=== PATIENT | male | born 1945 | race Caucasian/White ===

== ENCOUNTER → 2016-12-27 12:21 | Outpatient (CLI) | payer MEDICARE, OTHER ==
[2015-11-24 00:04] VITALS: BMI 27.1
[~2016-12-27 12:21] MED LIST: ALEVE220 MG PO; COMBIVENT RESPIM4 GM INH; CORDARONE200 MG PO; ELIQUIS5 MG PO; FLOMAX0.4 MG PO; HYDROCODONE-APA1 TAB PO; KLONOPIN1 MG PO; LEVAQUIN500 MG PO; LEVOTHYROXINE75 MCG PO; LOPRESSOR25 MG PO; NORCO 7.5-3251 EACH PO; SPIRIVA18 MCG INH; STERAPRED 5MG 65 M1 PO; XANAX1 MG PO
== END | disposition home or self-care (01) ==
LOC: D.CT 12:21 → D.RT 14:00
DX: J84.10 Pulmonary fibrosis, unspecified (principal)

== ENCOUNTER 2017-10-14 06:28 | Inpatient (IN) | payer MEDICARE, OTHER ==
[~2017-10-14] VITALS: Ht 180.3 cm; Wt 72.9 kg
--- NOTE | ~2017-10-14 | HEMODYNAMI ---
PATIENT:KYLE FERGUSON MEDICAL RECORD: [id number] : 43 LOCATION:[facility] D[id number] ADMISSION DATE: 10/14/17 Generatedon:10/15/201713:02 Patient name: KYLE FERGUSON Patient #: [id number] SSN: DO B: 1945 Date of study: 10/15/2017 Page: Of Hemodynamic Procedure Report Patient Data Patient Demographics Procedure consent was obtained First Name: KYLE Gender: Male Last Name: PHYLLIS : 1945 [facility] Initial: L Age: 72 year(s) Patient #: [id number] Race: Unknown Additional ID: [id number] Contact details [address]: [address] [place] [address] ROAD State: [place] City: [place] Zip code: [address] Past Medical History Allergies Allergen Reaction Date Comments Reported Other allergy 10/15/2017 SULFA, MORHPINE Admission Admission Data Admission Date: 10/14/2017 Admission Time: 8:41 Room #: D.2108 Lab Results Lab Result Date: 10/15/2017 Lab Result Time: 0:00 Biochemistry Name Units Result Min Max BUN mg/dl 46 --(----)-* 7 18 Creatinine mg/dl 2 --(----)-* 0.6 1.3 CBC Name Units Result Min Max Hemoglobin g/dl 13 -*(----)-- 13.5 17.5 Procedure Procedure Types Cath Procedure Diagnostic Procedure LHC LH w/Coronaries Sedation Charges Moderate Sedation up to 15 minutes PCI Procedure Coronary Stent Coronary Stent Initial Procedure Description Procedure Date Procedure Date: 10/15/2017 Procedure Start Time: 12:38 Procedure End Time: 13:00 Procedure Staff Name Function Clemente Castillo MD Performing Physician Christin Thurman RT Monitor Elijah Chong RT Scrub Jozef Amanda RN Nurse Procedure Data Cath Procedure Fluoroscopy Diagnostic fluoroscopy Total fluoroscopy Time: 4.2 time: 4.2 min min Diagnostic fluoroscopy Total fluoroscopy dose: 822 dose: 822 mGy mGy Contrast Material Contrast Material Type Amount (ml) Isovue 300 113 Entry Location Entry Primary Successful Side Size Upsize Upsize Entry Closure Succes sful Closure Location (Fr) 1 (Fr) 2 (Fr) Remarks Device Remarks Femoral Right 5 Fr 6 Fr Exoseal artery Short Estimated blood loss: 10 ml Diagnostic catheters Device Type Used For End Catheter Placement MULTIPACK JL 4.0 5Fr Procedure catheter DIAGNOSTIC JL 5 5Fr Procedure catheter ([id number]) MULTIPACK 3DRC 5Fr Procedure catheter MULTIPACK Pigtail 5 Fr Procedure catheter Procedure Complications No complications Procedure Medications Medication Administration Route Dosage 0.9% NaCl I.V. 100 ml/hr Oxygen etCO2 Nasal cannula 2 l/min Heparin Flush Bag added to field 2 bags (1000units/500ml NS) Lidocaine 2% added to field 20 Versed I.V. 1 mg Fentanyl I.V. 50 mcg Heparin Bolus I.V. 8100 units Plavix P.O. 600 mg Hemodynamics Rest HGB: 13 (g/dl) Heart Rate: 67 (bpm) Pressure Samples Time Site Value (mmHg) Purpose Heart Use Rate(bpm) 12:46 LV 113/-6,15 Snapshot 69 12:46 AO 111/58(80) Pullback 69 12:46 LV 108/2,13 Pullback 69 Gradients Valve Time Site 1 Site 2 Mean SEP/DFP Peak To Heart Use (mmHg) (sec/min) Peak Rate (mmHg) (bpm) Aortic 12:46 LV AO 0 9 0 69 108/2,13 111/58(80) Calculations Valve P-P Mean Valve Index Valve Source Name Gradient Area Flow (cm2) Aortic 0 0 0 0 Snapshots Pre Cath Intra NCS Post Cath Vital Signs Time Heart Resp SPO2 etCO2 NIBP (mmHg) Rhythm Pain Sedation Rate (ipm) (%) (mmHg) Status Level (bpm) 12:32:23 67 21 94 24 122/85(100) NSR 0 (11) 10(A) , No pain 12:36:59 68 16 92 27 120/76(101) NSR 0 (11) 10(A) , No pain 12:41:36 67 13 91 15 115/75(90) NSR 0 (11) 9(A) , No pain 12:46:59 68 15 92 27.7 108/70(91) NSR 0 (11) 9(A) , No pain 12:51:34 68 13 92 28.5 114/69(90) NSR 0 (11) 9(A) , No pain 12:56:10 67 14 93 29.2 108/68(88) NSR 0 (11) 9(A) , No pain 13:00:43 68 15 93 25.5 109/69(88) NSR 0 (11) 10(A) , No pain Medications Time Medication Route Dose Verified Delivered Reason Notes Effectiveness by by 12:32:17 0.9% NaCl I.V. 100 Jozef Jozef Per physician ml/hr Vasiliy Amanda RN RN 12:32:38 Oxygen etCO2 2 Jozef Jozef Per physician Nasal l/min Vasiliy Amanda cannula RN RN 12:32:52 Heparin Flush added 2 Jozef Jozef used for Bag to bags Vasiliy Amanda procedure (1000units/500ml RN RN NS) 12:33:07 Lidocaine 2% added 20ml Jozef Jozef for local to vial Vasiliy Amanda anesthetic [facility] RN RN 12:33:27 Versed I.V. 1 mg Jozef Jozef for sedation Vasiliy Amanda RN RN 12:33:37 Fentanyl I.V. 50 Jozef Ojzef for sedation mcg Vasiliy Amanda RN RN 12:51:55 Heparin Bolus I.V. 8,100 Jozef Jozef for units Vasiliy Amanda anticoagulation RN RN 13:00:37 Plavix P.O. 600 Jozef Jozef for mg Vasiliy Amanda antiplatelet RN RN therapy Procedure Log Time Note 12:08:27 Signed procedure consent form obtained from patient. 12:08:30 Time tracking: Regular hours (M-F 7:00 - 5:00) 12:08:34 Plan of Care:Hemodynamics will remain stable., Cardiac rhythm will remain stable., Comfort level will be maintained., Respiratory function will remain adequate., Patient/ family verbilizes understanding of procedure., Procedure tolerated without complication., Recovers from procedure without complications.. 12:08:43 H&P Date Dictated: 10/14/2017 Within 30 days and on chart., H&P Addendum completed by physician on day of procedure. (MUST COMPLETE FOR ALL OUTPATIENTS). 12:09:10 Lab Result : BUN 46 mg/dl 12:09:10 Lab Result : Hemoglobin 13 g/dl 12:09:10 Lab Result : Creatinine 2 mg/dl 12:10:20 Jozef Amanda RN sent for patient. Start room use. 12::42 Patient received from Med II to CCL 1 Alert and oriented. Tansferred to table in Supine position. 12::44 Warm blankets applied, and debbie hugger turned on for patient comfort. 12::44 Correct patient and procedure confirmed by team. 12::45 ECG and BP/O2 sat monitors applied to patient. 12:: Baseline sample Acquired. 12:: Vital chart was started 12::37 Rhythm: sinus rhythm 12::38 Full Disclosure recording started 12::39 Pre-procedure instructions explained to patient. 12::39 Pre-op teaching completed and patient verbalized understanding. 12::41 Family unavailable. 12::42 Patient NPO since Midnight. 12:31:55 Patient allergic to Other allergySULFA, MORHPINE 12:31:57 Is the patient allergic to Iodine/contrast media? No. 12:31:58 Is patient on blood thinner?No 12:32:00 Patient diabetic? No. 12:32:03 Previous problem with sedation/anesthesia? No ? 12:32:04 Snore? Yes 12:32:05 Sleep apnea? No 12:32:06 Deviated septum? No 12:32:06 Opens mouth fully? Yes 12:32:07 Sticks out tongue? Yes 12:32:10 Airway obstruction? Yes COPD 12:32:13 Dentures? No ? 12:32:17 0.9% NaCl 100 ml/hr I.V. was administered by Jozef Amanda RN; Per physician; 12:32:17 Pre procedure: right dorsailis pedis pulse 2+ Normal; easily identifiable; not easily obliterated 12:32:19 Patient pain scale 0/10 ?. 12:32:23 IV patent on arrival in right antecubital with 0.9% NaCl at [facility]. 12:32:26 Lab results completed and on chart. 12:32:29 Right groin area was prepped with chlora-prep and draped in sterile fashion 12:32:30 Alarms reviewed by R. N. 12:32:30 Sharps counted by scrub and verified by R.N. 12:32:32 --------ALL STOP TIME OUT------ 12:32:32 Final Timeout: patient, procedure, and site verified with staff and physician. All members of the team are in agreement. 12:32:33 Right groin site verified by team. 12:32:36 Physical assessment completed. ASA score P 2 - A patient with mild systemic disease as per Clemente Castillo MD. 12:32:38 Oxygen 2 l/min etCO2 Nasal cannula was administered by Jozef Amanda RN; Per physician; 12:32:39 Sedation plan: IV Moderate Sedation Medication:Versed, Fentanyl 12:32:42 Use device set Femoral Dx 12:32:43 ACIST Syringe (73556) opened to sterile field. 12:32:44 Bag Decanter (2002S) opened to sterile field. 12:32:45 ACIST Hand Control (44733) opened to sterile field. 12:32:45 ACIST Manifold (95999) opened to sterile field. 12:32:46 Tegaderm 4 x 4 (1626W) opened to sterile field. 12:32:47 Medline Cath Pack ([id number]) opened to sterile field. 12:32:48 DIAGNOSTIC WIRE .035 260cm J wire (608149) opened to sterile field. 12:32:49 DIAGNOSTIC Multipack 5Fr catheter set ([id number]) opened to sterile field. 12:32:52 Heparin Flush Bag (1000units/500ml NS) 2 bags added to field was administered by Jozef Amanda RN; used for procedure; 12:33:07 Lidocaine 2% 20ml vial added to field was administered by Jozef Amanda RN; for local anesthetic; 12:33:27 Versed 1 mg I.V. was administered by Jozef Amanda RN; for sedation; 12:33:37 Fentanyl 50 mcg I.V. was administered by Jozef Amanda RN; for sedation; 12:38:42 Zero performed for pressure channel P1 12:38:47 Procedure started. 12:38:51 Local anesthetic to right femoral artery with Lidocaine 2% by Clemente Castillo MD.INITIAL ACCESS ONLY 12:39:00 A 5 Fr sheath was inserted into the Right Femoral artery 12:39:33 SHEATH Prelude 5Fr 0.035 (OVO-7U-53-035) opened to sterile field. 12:39:48 A MULTIPACK JL 4.0 5Fr catheter was advanced over the wire and used for Procedure. 12:40:45 UNABLE TO ENGAGE LEFT CORONARY 12:40:47 Catheter removed. 12:41:22 A DIAGNOSTIC JL 5 5Fr catheter ([id number]) was advanced over the wire and used for Procedure. 12:42:21 LCA angiography performed. 12:42:57 Catheter exchanged over wire. 12:44:00 A MULTIPACK 3DRC 5Fr catheter was advanced over the wire and used for Procedure. 12:44:38 RCA angiography performed. 12:44:53 Catheter exchanged over wire. 12:45:34 A MULTIPACK Pigtail 5 Fr catheter was advanced over the wire and used for Procedure. 12:46:00 Injector settings: Ml/sec: 10, Volume: 20, 12:46:04 LV gram done using ODONNELL 12:46:07 LV hemodynamics recorded. 12:46:54 EF : 20 % 12:47:01 Catheter exchanged over wire. 12:47:13 TUBING High Pressure Extension Tubing (Castillo) ([id number]) opened to sterile field. 12:47:19 BMW 300cm [place] 2 J wire ([id number]) opened to sterile field. 12:47:24 GUIDE 6FR XBLAD 4.0 catheter ([id number]) opened to sterile field. 12:47:36 SHEATH 6FR [place] (NSG143) opened to sterile field. 12:47:43 INFLATOR Merit BasixCompak (DJ5682) opened to sterile field. 12:48:12 Sheath upsized to a 6 Fr Short. 12:49:30 6 Fr XBLAD 4 guide catheter was inserted over the wire 12:51:55 Heparin Bolus 8,100 units I.V. was administered by Jozef Amanda RN; for anticoagulation; 12:52:01 BMW 300 wire advanced. 12:53:13 Wire advanced across lesion. 12:56:16 Place stent Inflation Number: 1 A INTEGRITY OTW 3.0 X 12 stent ([id number]) was prepped and advanced across the Prox LAD. The stent was deployed at 14 ADRIANE for 0:10 (min:sec). 12:56:47 EXOSEAL 6Fr (EX600) opened to sterile field. 12:56:53 Stent catheter was removed intact over wire. 12:56:56 Wire removed. 12:57:00 Guide catheter removed. 12:57:55 Sheath removed intact; hemostasis achieved with Exoseal to the Right Femoral artery. 12:58:19 Procedure ended.(Physican Out) 12:59:21 Fluoroscopy time 04.20 minutes. 12:59:25 Fluoroscopy dose: 822 mGy 12:59:25 Flurop Dose total: 822 12:59:29 Contrast amount:Isovue 300 113ml. 12:59:31 Sharps counted by scrub and verified by R.N. 12:59:35 Post-op/insertion site Right Femoral artery dressed using a 4 x 4 and Tegaderm. 12:59:38 Post right femoral artery:stable, soft, clean and dry 12:59:43 Post-procedure physical assessment completed. ASA score P 2 - A patient with mild systemic disease as per Clemente Castillo MD. 12:59:47 Post procedure rhythm: unchanged. 12:59:49 Estimated blood loss: 10 ml 12:59:51 Post procedure instruction explained to patient.Patient verbalizes understanding. 12:59:51 Patient needs reinforcement of post procedure teaching. 13:00:04 Procedure type changed to Cath procedure, Diagnostic procedure, LHC, LHC w/Coronaries, Sedation Charges, Moderate Sedation up to 15 minutes, PCI procedure, Coronary Stent, Coronary Stent Initial 13:00:37 Plavix 600 mg P.O. was administered by Jozef Amanda RN; for antiplatelet therapy; 13:00:44 Procedure and supply charges have been captured, reviewed, submitted and are correct. 13:00:46 Procedure Complication : No complications 13:00:48 Vital chart was stopped 13:00:49 See physician's report for complete and final results. 13:00:52 Report given to PCU. 13:00:56 Patient transfered to PCU with Bed. 13:00:58 Procedure ended. 13:00:58 Full Disclosure recording stopped 13:01:01 End room use (Document Last) Intervention Summary Intervention Notes Time ActionType Lesion and Equipment Action# Pressure Duration Attributes Used 12:56:16 Place stent Prox LAD INTEGRITY 1 14 00:10 OTW 3.0 X 12 stent ([id number]) Device Usage Item Name Manufacture Quantity Catalog Number Hospital Part Current M inimal Lot# / Charge Number Stock Stock Serial# Code ACIST Syringe Acist 1 17281 029596 315416 426142 2 0 (02950) [employer] Bag Decanter Microtek 1 2001S 221367 14699 045773 5 (2001S) Medical Inc. ACIST Hand Acist 1 16497 643680 506641 309931 5 Control (00983) [employer] Inc ACIST Manifold Acist 1 59270 682325 062726 544773 5 (29544) Medical Systems Inc Tegaderm 4 x 4 3M 1 1626W 805915 127109 725010 5 (1626W) Medline Cath Cardinal 1 [id number] 426883 77017 795017 5 Pack Health ([id number]) DIAGNOSTIC WIRE St Dash 1 024370 098679 836419 715400 3 0 .035 260cm J wire (200413) DIAGNOSTIC Cardinal 1 FO6001 549332 96740 223769 3 0 Multipack 5Fr Health catheter set (DD2609) SHEATH Prelude Merit 1 TIJ-8A-79-035 171336 218267 143727 5 5Fr 0.035 Medical (JPA-2I-22-035) MULTIPACK JL Cardinal 1 526986 5 4.0 5Fr Health catheter DIAGNOSTIC JL 5 Cardinal 1 [id number] 138232 492991 974227 5 5Fr catheter Health (470161D) MULTIPACK 3DRC Cardinal 1 174733 5 5Fr catheter Health MULTIPACK Cardinal 1 520580 5 Pigtail 5 Fr Health catheter TUBING High Merit 1 [id number] 200854 34066 746801 1 0 Pressure Medical Extension Tubing (Castillo) (VD2550Y) BMW 300cm [place] 1 [id number] 954129 468632 137867 5 [place] 2 J Vascular wire (4541549C) GUIDE 6FR XBLAD Cardinal 1 [id number] 539544 635701 051798 3 4.0 catheter Health ([id number]) SHEATH 6FR Terumo 1 ITV079 867074 944011 902570 4 0 [place] (OZE446) INFLATOR Merit Merit 1 KC0984 015106 490261 264682 1 5 Causes (PU0196) INTEGRITY OTW Medtronic 1 [id number] 739170 132353 9 [id number] 3.0 X 12 stent ([id number]) EXOSEAL 6Fr Cardinal 1 EX600 274555 722221 774205 1 0 (EX600) Health Signature Audit [place] Stage Time Signature Unsigned Intra-Procedure 10/15/2017 Christin Thurman 1:02:16 PM RT(R) Signatures Monitor : Christin Thurman Signature : RT Date : Time : [address] [address]
[2017-10-14 06:44] LABS: BASOPHILS 0.6 % (0-2); EOSINOPHILS 8.1 % (0-7); HEMATOCRIT 39.1 % (42.0-54.0); HEMOGLOBIN 12.8 g/dL (13.5-17.5); IMMATURE GRANULOCYTES 0.3 % (0-5); LYMPHOCYTES 24.1 % (15-50); MCH 31.6 pg (26.0-34.0); MCHC 32.7 g/dL (31.0-37.0); MCV 96.5 fL (80.0-100.0); MEAN PLATELET VOLUME 9.8 fL (7.4-10.4); MONOCYTES 13.7 % (2-11); NEUTROPHILS 53.2 % (40-80); PLATELET COUNT 285 10x3/uL (130-400); RBC 4.05 10x6/uL (4.20-6.10); RDW 15.4 % (11.5-14.5); WBC 10.4 10x3/uL (4.8-10.8)
[2017-10-14 07:10] LABS: ALBUMIN 3.5 g/dL (3.4-5.0); ANION GAP 17.3 mmol/L (8-16); BILIRUBIN - TOTAL 0.74 mg/dL (0.2-1.3); CARBON DIOXIDE 20.7 mmol/L (21.0-32.0)
[2017-10-14 07:20] LABS: TROPONIN-I 0.038 ng/mL (0.000-0.060)
[2017-10-14] MEDS ORDERED: FLOMAX0.4 MG PO (14:25)
[2017-10-14] MEDS ORDERED: VALIUM5 MG PO (14:26)
[2017-10-14 14:42] VITALS: BP 125/92; BMI 24.1
[2017-10-14 20:11] VITALS: BP 83/58
[2017-10-15] VITALS: BP 121/84
[2017-10-15 05:32] VITALS: BP 97/59
[2017-10-15 05:45] LABS: BASOPHILS 0.6 % (0-2); EOSINOPHILS 6.4 % (0-7); HEMATOCRIT 39.6 % (42.0-54.0); IMMATURE GRANULOCYTES 0.2 % (0-5); LYMPHOCYTES 17.3 % (15-50); MCH 31.4 pg (26.0-34.0); MCHC 32.8 g/dL (31.0-37.0); MCV 95.7 fL (80.0-100.0); MEAN PLATELET VOLUME 9.7 fL (7.4-10.4); MONOCYTES 13.7 % (2-11); NEUTROPHILS 61.8 % (40-80); PLATELET COUNT 297 10x3/uL (130-400); RBC 4.14 10x6/uL (4.20-6.10); RDW 15.3 % (11.5-14.5); WBC 10.2 10x3/uL (4.8-10.8)
[2017-10-15 05:55] LABS: ANION GAP 14.2 mmol/L (8-16); CALCIUM 8.5 mg/dL (8.5-10.1); CARBON DIOXIDE 25.7 mmol/L (21.0-32.0)
[2017-10-15 06:00] LABS: POTASSIUM - SERUM 3.9 mmol/L (3.5-5.1)
[2017-10-15 09:13] VITALS: BP 105/72
[2017-10-15 10:47] VITALS: Ht 180.3 cm; Wt 72.9 kg
[2017-10-15 11:58] VITALS: BP 112/68
[2017-10-15 16:47] VITALS: BP 119/68
[2017-10-15 20:38] VITALS: BP 103/63
[2017-10-16 00:28] VITALS: BP 103/60
[2017-10-16 05:41] VITALS: BP 102/61
[2017-10-16 05:47] LABS: BASOPHILS 0.4 % (0-2); HEMATOCRIT 37.7 % (42.0-54.0); HEMOGLOBIN 12.1 g/dL (13.5-17.5); IMMATURE GRANULOCYTES 0.2 % (0-5); LYMPHOCYTES 16.5 % (15-50); MCH 30.7 pg (26.0-34.0); MCHC 32.1 g/dL (31.0-37.0); MCV 95.7 fL (80.0-100.0); MEAN PLATELET VOLUME 9.6 fL (7.4-10.4); MONOCYTES 16.7 % (2-11); NEUTROPHILS 56.2 % (40-80); PLATELET COUNT 270 10x3/uL (130-400); RBC 3.94 10x6/uL (4.20-6.10); RDW 15.4 % (11.5-14.5); WBC 10.3 10x3/uL (4.8-10.8)
[2017-10-16 06:14] LABS: ANION GAP 12.4 mmol/L (8-16); CARBON DIOXIDE 24.4 mmol/L (21.0-32.0); CREATININE - SERUM 1.7 mg/dL (0.6-1.3); POTASSIUM - SERUM 3.8 mmol/L (3.5-5.1)
[2017-10-16 09:16] VITALS: BP 106/72
[2017-10-16 12:54] VITALS: BP 113/67
[2017-10-16 17:05] VITALS: BP 105/69
[2017-10-16 21:25] VITALS: BP 116/75
[2017-10-17 00:50] VITALS: BP 103/60
[2017-10-17 04:50] VITALS: BP 101/54
[2017-10-17 05:54] LABS: BASOPHILS 0.5 % (0-2); EOSINOPHILS 11.9 % (0-7); HEMATOCRIT 42.8 % (42.0-54.0); HEMOGLOBIN 13.9 g/dL (13.5-17.5); IMMATURE GRANULOCYTES 0.3 % (0-5); LYMPHOCYTES 20.6 % (15-50); MCH 31.3 pg (26.0-34.0); MCHC 32.5 g/dL (31.0-37.0); MCV 96.4 fL (80.0-100.0); MEAN PLATELET VOLUME 9.5 fL (7.4-10.4); MONOCYTES 14.3 % (2-11); NEUTROPHILS 52.4 % (40-80); PLATELET COUNT 297 10x3/uL (130-400); RBC 4.44 10x6/uL (4.20-6.10); RDW 15.4 % (11.5-14.5); WBC 9.8 10x3/uL (4.8-10.8)
[2017-10-17 06:12] LABS: ANION GAP 13.3 mmol/L (8-16); CALCIUM 8.5 mg/dL (8.5-10.1); CREATININE - SERUM 1.8 mg/dL (0.6-1.3); POTASSIUM - SERUM 3.3 mmol/L (3.5-5.1)
[2017-10-17 08:08] VITALS: BP 119/74
[2017-10-17] MEDS ORDERED: NICODERM C1 PATCH .1 TRANSDERM (09:48)
[2017-10-17] MEDS ORDERED: PROTONIX40 MG PO (09:49)
[2017-10-17] MEDS ORDERED: BUMEX 1 MG TAB1 MG PO (09:49)
[2017-10-17] MEDS ORDERED: KLOR-CON 1010 MEQ PO (09:50)
[2017-10-17] MEDS ORDERED: PLAVIX75 MG PO (09:58)
[2017-10-17 11:06] VITALS: BP 126/83
== END 2017-10-17 14:50 | disposition home or self-care (01) | DRG 248 ==
LOC: D.ER 06:28 → D.M2 08:41 → D.EDHOLD 08:41 → D.M2 14:00
PROVIDERS: Emergency Medicine; Internal Medicine Cardiovascular Disease; Internal Medicine Nephrology
PROC: B2111ZZ Fluoroscopy of Multiple Coronary Arteries using Low Osmolar Contrast (ICD-10-PCS; 2017-10-15)
PROC: B2151ZZ Fluoroscopy of Left Heart using Low Osmolar Contrast (ICD-10-PCS; 2017-10-15)
PROC: 02703DZ Dilation of Coronary Artery, One Artery with Intraluminal Device, Percutaneous Approach (ICD-10-PCS; principal; 2017-10-15 15:00)
PROC: 4A023N7 Measurement of Cardiac Sampling and Pressure, Left Heart, Percutaneous Approach (ICD-10-PCS; 2017-10-15 15:00)
DX: I11.0 Hypertensive heart disease with heart failure (principal); J96.21 Acute and chronic respiratory failure with hypoxia; N17.9 Acute kidney failure, unspecified; J44.0 Chronic obstructive pulmonary disease with (acute) lower respiratory infection; F17.203 Nicotine dependence unspecified, with withdrawal; I48.92 Unspecified atrial flutter; I50.23 Acute on chronic systolic (congestive) heart failure; J20.9 Acute bronchitis, unspecified; J84.10 Pulmonary fibrosis, unspecified; K76.1 Chronic passive congestion of liver; I08.1 Rheumatic disorders of both mitral and tricuspid valves; I27.20 Pulmonary hypertension, unspecified; G47.00 Insomnia, unspecified; J98.09 Other diseases of bronchus, not elsewhere classified

== ENCOUNTER 2018-06-09 11:00 | Outpatient (CLI) | payer MEDICARE, OTHER ==
[2017-10-15 10:47] VITALS: BMI 23.3
[~2018-06-09 11:00] MED LIST changes: +BUMEX 1 MG TAB1 MG PO; +KLOR-CON 1010 MEQ PO; +NICODERM C1 PATCH .1 TRANSDERM; +PLAVIX75 MG PO; +PROTONIX40 MG PO; +VALIUM5 MG PO
[2018-06-09 12:40] LABS: HEMATOCRIT 38.7 % (42.0-54.0); HEMOGLOBIN 12.5 g/dL (13.5-17.5); MCH 30.1 pg (26.0-34.0); MCHC 32.3 g/dL (31.0-37.0); MCV 93.3 fL (80.0-100.0); MEAN PLATELET VOLUME 9.3 fL (7.4-10.4); RBC 4.15 10x6/uL (4.20-6.10); RDW 15.6 % (11.5-14.5); WBC 9.4 10x3/uL (4.8-10.8)
[2018-06-09 12:58] LABS: ANION GAP 13.9 mmol/L (8-16); CALCIUM 9.3 mg/dL (8.5-10.1); CREATININE - SERUM 1.7 mg/dL (0.6-1.3); POTASSIUM - SERUM 4.9 mmol/L (3.5-5.1)
== END 2018-06-09 12:00 | disposition home or self-care (01) ==
LOC: D.OPS 11:00 → D.PAN 06-10 10:30 → D.OPS 06-10 12:20 → EDSTATUS 06-10 12:20 → D.PAN 06-10 12:20 → D.OPS 06-10 13:15
PROVIDERS: Anesthesiology
DX: N40.0 Benign prostatic hyperplasia without lower urinary tract symptoms (principal); Z01.810 Encounter for preprocedural cardiovascular examination; Z01.811 Encounter for preprocedural respiratory examination; Z01.812 Encounter for preprocedural laboratory examination; Z53.9 Procedure and treatment not carried out, unspecified reason

== ENCOUNTER 2019-01-29 09:10 | Day surgery (SDC) | payer MEDICARE, OTHER ==
[2019-01-27 16:02] LABS: HEMATOCRIT 40.1 % (42.0-54.0); HEMOGLOBIN 13.3 g/dL (13.5-17.5); MCH 31.3 pg (26.0-34.0); MCHC 33.2 g/dL (31.0-37.0); MCV 94.4 fL (80.0-100.0); MEAN PLATELET VOLUME 9.2 fL (7.4-10.4); RBC 4.25 10x6/uL (4.20-6.10); RDW 13.9 % (11.5-14.5); WBC 11.7 10x3/uL (4.8-10.8)
[2019-01-27 16:19] LABS: ANION GAP 10.5 mmol/L (8-16); CALCIUM 8.5 mg/dL (8.5-10.1); CARBON DIOXIDE 31.3 mmol/L (21.0-32.0); CREATININE - SERUM 1.6 mg/dL (0.6-1.3); POTASSIUM - SERUM 4.8 mmol/L (3.5-5.1)
[~2019-01-29] VITALS: Ht 180.3 cm; Wt 90.7 kg
[~2019-01-29 09:10] MED LIST changes: +ALBUTEROL SULF8.5 GM INH; +ASPIRIN EC81 M1 PO; +COREG 3.1253.125 MG PO; +DONEPEZIL HCL10 MG PO; +LISINOPRIL2.5 MG PO; +PRESERVISION PO; +VALIUM10 MG PO; -VALIUM5 MG PO; +XALATAN 0.0052.5 ML EACH EYE
[2019-01-29 11:19] VITALS: BP 148/64; Ht 180.3 cm; Wt 90.7 kg
--- NOTE | 2019-01-29 15:27 | NUR ---
1517 ALL DC CRITERIA MET. TAKEN OUT VIA W/C TO TRUCK WITH . ADVISED TO CALL OR COME BACK IF ANY PROBLEMS.
== END 2019-01-29 15:17 | disposition home or self-care (01) ==
LOC: D.OPS 09:10 → D.PAN 12:00 → D.OPS 12:00
PROVIDERS: Anesthesiology; ATTEND Urology
DX: N40.1 Benign prostatic hyperplasia with lower urinary tract symptoms (principal); N13.8 Other obstructive and reflux uropathy

== ENCOUNTER → 2019-06-25 12:48 | Outpatient (CLI) | payer MEDICARE, BC ==
[2019-01-29 11:19] VITALS: BMI 27.9
== END | disposition home or self-care (01) ==
LOC: D.RT 04-07 10:30 → D.CT 04-07 11:00 → D.RT 05-05 09:00 → D.CT 12:48 → D.RT 13:00
PROVIDERS: ATTEND Internal Medicine Pulmonary Disease
DX: J44.9 Chronic obstructive pulmonary disease, unspecified (principal); J84.10 Pulmonary fibrosis, unspecified

== ENCOUNTER → 2019-11-23 12:18 | Outpatient (CLI) | payer MEDICARE, BC ==
[2019-01-29 11:19] VITALS: BMI 27.9
== END | disposition home or self-care (01) ==
LOC: D.LABREF 12:18
PROVIDERS: ATTEND Internal Medicine Pulmonary Disease
DX: Z11.59 Encounter for screening for other viral diseases (principal)

== ENCOUNTER → 2019-11-24 12:02 | Outpatient (CLI) | payer MEDICARE, BC ==
[2019-01-29 11:19] VITALS: BMI 27.9
== END | disposition home or self-care (01) ==
LOC: D.RT 09-23 08:30
PROVIDERS: ATTEND Internal Medicine Pulmonary Disease
DX: J44.9 Chronic obstructive pulmonary disease, unspecified (principal)

== ENCOUNTER 2020-02-17 17:31 | Observation (INO) | payer MEDICARE, BC ==
[~2020-02-17] VITALS: Ht 180.3 cm; Wt 90.9 kg
--- NOTE | ~2020-02-17 | HEMODYNAMI ---
PATIENT:KYLE FERGUSON MEDICAL RECORD: [id number] : 43 LOCATION:[facility] D.2117 [facility]# [id number] ADMISSION DATE: 02/17/20 Generatedon:02/18/202014:31 Patient name: KYLE FERGUSON Patient #: [id number] SSN: [id number] : 1945 Date of study: 02/18/2020 Page: Of Hemodynamic Procedure Report Patient Data Patient Demographics First Name: KYLE Gender: Male Last Name: PHYLLIS : 1945 Middle Initial: L Age: 75 year(s) Patient #: [id number] Race: Unknown SSN: [id number] Additional ID: [id number] Contact details [address]: [address] [place] [address] ROAD State: [place] City: [place] Zip code: [address] Past Medical History Allergies Allergen Reaction Date Comments Reported Other allergy 10/15/2017 SULFA, MORHPINE Other allergy 02/18/2020 Admission Admission Data Admission Date: 02/17/2020 Admission Time: 19:07 Arrival Date: 02/18/2020 Arrival Time: 0:00 Admit Source: Other [facility] #: [id number] Height (in.): 70.87 BSA: 2.1 (m2) Height (cm.): 180 BMI: 27.78 (kg/m2) Weight (lbs.): 198.42 Weight (kg.): 90 Lab Results Lab Result Date: 02/18/2020 Lab Result Time: 0:00 Biochemistry Name Units Result Min Max BUN mg/dl 30 --(----)-* 7 18 Creatinine mg/dl 1.5 --(----)-* 0.6 1.3 eGFR ml/min 48 *-(----)-- 90 120 NONAFRICAN CBC Name Units Result Min Max Hemoglobin g/dl 11.8 *-(----)-- 13.5 17.5 Procedure Procedure Types Cath Procedure Diagnostic Procedure [facility] w/Coron[facility] Procedure Description Procedure Date Procedure Date: 02/18/2020 Procedure Start Time: 14:19 Procedure End Time: 14:27 Procedure Staff Name Function Luis Mayorga MD Performing Physician Melodie Sanders RT Monitor Suni Kim RN Nurse Rhea Stein RT Monitor Procedure Data Cath Procedure Fluoroscopy Diagnostic fluoroscopy Total fluoroscopy Time: 1 time: 1 min min Diagnostic fluoroscopy Total fluoroscopy dose: 875 dose: 875 mGy mGy Contrast Material Contrast Material Type Amount (ml) Isovue 300 44 Entry Location Entry Primary Successful Side Size Upsize Upsize Entry Closure Succes sful Closure Location (Fr) 1 (Fr) 2 (Fr) Remarks Device Remarks Femoral Right 5 Fr Exoseal artery Estimated blood loss: 5 ml Diagnostic catheters Device Type Used For End Catheter Placement MULTIPACK JL 4.0 5Fr Left Coronary catheter Angiography MULTIPACK 3DRC 5Fr Right Coronary catheter Angiography MULTIPACK Pigtail 5 Fr LV Angiography catheter Procedure Complications No complications Procedure Medications Medication Administration Route Dosage 0.9% NaCl I.V. 100 ml/hr Lidocaine 2% added to field 20 Heparin Flush Bag added to field 2 bags (1000units/500ml NS) Oxygen NC 2 l/min Versed I.V. 1 mg Fentanyl I.V. 50 mcg Versed I.V. 1 mg Fentanyl I.V. 50 mcg Versed I.V. 0.5 mg Hemodynamics Rest BSA: 2.1 (m2) HGB: 11.8 (g/dl) O2 Consumption: Estimated: 229.84 (ml/min) O2 Con sumption indexed: Estimated:109.45 (ml/min/m) Heart Rate: 56 (bpm) Pressure Samples Time Site Value (mmHg) Purpose Heart Use Rate(bpm) 14:25 LV 136/8,15 Snapshot 56 14:25 AO 127/68(92) Pullback 57 14:25 LV 124/16,21 Pullback 57 Gradients Valve Time Site 1 Site 2 Mean SEP/DFP Peak To Heart Use (mmHg) (sec/min) Peak Rate (mmHg) (bpm) Aortic 14:25 LV AO 0 9 0 57 124/16,21 127/68(92) Calculations Valve P-P Mean Valve Index Valve Source Name Gradient Area Flow (cm2) Aortic 0 0 0 0 Snapshots Pre Cath Intra NCS Post Cath Vital Signs Time Heart Resp SPO2 etCO2 NIBP (mmHg) Rhythm Pain Sedation Rate (ipm) (%) (mmHg) Status Level (bpm) 14:08:23 52 25 95 27.3 145/73(120) NSR 0 (11) 10(A) , No pain 14:12:47 52 24 96 27.3 147/73(124) NSR 0 (11) 10(A) , No pain 14:17:12 52 22 96 31 149/78(125) NSR 0 (11) 9(A) , No pain 14:22:11 54 21 96 24.3 Measuring NSR 0 (11) 9(A) , No pain 14:22:27 53 20 94 35.4 130/66(106) NSR 0 (11) 9(A) , No pain 14:27:26 55 15 95 38.4 Measuring NSR 0 (11) 9(A) , No pain 14:27:32 55 16 95 34.7 129/71(112) NSR 0 (11) 10(A) , No pain Medications Time Medication Route Dose Verified Delivered Reason Notes Effe ctiveness by by 14:11:46 0.9% NaCl I.V. 100 Luis Suni used for ml/hr Tierra Julio procedure MD FRAZIER 14:11:55 Lidocaine 2% added 20ml Luis Suni for local to vial Tierra Julio anesthetic field MD FRAZIER 14:12:07 Heparin Flush added 2 Luis Suni used for Bag to bags Tierra Julio procedure (1000units/500ml field AVELAR RN NS) 14:12:16 Oxygen NC 2 Ulis Suni for low 02 l/min Tierra Julio sats MD FRAZIER 14:19:27 Versed I.V. 1 mg Luis Suni for Tierra Julio sedation MD FRAZIER 14:19:35 Fentanyl I.V. 50 Luis Suni for mcg Tierra Julio sedation MD FRAZIER 14:22:01 Versed I.V. 1 mg Luis Suni for Tierra Julio sedation MD FRAZIER 14:22:12 Fentanyl I.V. 50 Luis Suni for mcg Tierra Julio sedation MD FRAZIER 14:25:21 Versed I.V. 0.5 Luis Suni for mg Tierra Julio sedation MD installer interior assemblies Log Time Note 13:41:49 Arrival Date: 02/18/2020 12:00:00 AM 13:42:12 Admit Source: Other 13:42:15 Insurance Payor : Private health insurance, Medicare 13:43:11 Patient Height : 70.87 inches 13:43:15 Patient Weight : 198.42 lbs 13:46:52 Lab Result : BUN 30 mg/dl 13:46:52 Lab Result : Hemoglobin 11.8 g/dl 13:46:52 Lab Result : eGFR NONAFRICAN 48 ml/min 13:46:52 Lab Result : Creatinine 1.5 mg/dl 13:47:03 Diagnostic Cath Status : Urgent 13:48:31 Procedure Status Urgent Heart Cath (IP). 13:48:34 Melodie Sanders RT(R) sent for patient. Start room use. 13:48:35 Time tracking: Regular hours (M-F 7:00 - 5:00) 13:48:40 Plan of Care:Hemodynamics will remain stable., Cardiac rhythm will remain stable., Comfort level will be maintained., Respiratory function will remain adequate., Patient/ family verbilizes understanding of procedure., Procedure tolerated without complication., Recovers from procedure without complications.. 14:04:32 Patient received from Med II to CCL 1 Alert and oriented. Tansferred to table in Supine position. 14:04:33 Warm blankets applied, and debbie hugger turned on for patient comfort. 14:04:36 Correct patient and procedure confirmed by team. 14:04:40 ECG and BP/O2 sat monitors applied to patient. 14:04:44 Pre-procedure instructions explained to patient. 14:04:47 Family unavailable. 14:04:49 Patient NPO since Midnight. 14:05:45 Patient allergic to Other allergy 14:05:52 Is the patient allergic to Iodine/contrast media? No. 14:05:54 Was the patient premedicated? Yes 14:05:57 Is patient on blood thinner?No 14:05:59 Patient diabetic? No. 14:06:10 Snore? Yes 14:06:12 Sleep apnea? Yes 14:06:33 Airway obstruction? Yes COPD,asthma,emphazema 14:06:39 Patient pain scale 0/10 ?. 14:06:44 Lab results completed and on chart. 14:06:50 Right groin area was prepped with chlora-prep and draped in sterile fashion 14:06:55 Sharps counted by scrub and verified by Patrick 14:06:57 Physician paged 14:06:58 Physician arrived 14:07:03 --------ALL STOP TIME OUT------ 14:07:04 Final Timeout: patient, procedure, and site verified with staff and physician. All members of the team are in agreement. 14:07:07 Right groin site verified by team. 14:07:11 Fire Safety Assessment: A--An alcohol-based skin anteseptic being used preoperatively., C--Open oxygen or nitrous oxide is being used., D--An ESU, laser, or fiber-optic light is being used. 14:07:14 Vital chart was started 14:07:16 Physical assessment completed. ASA score P 2 - A patient with mild systemic disease as per Luis Mayorga MD. 14:07:21 3a) 45-59 Moderately reduced kidney function. 14:07:57 Maximum allowable contrast dose (3.7 X eGFR X 0.75)133 ml. 14:08:03 Sedation plan: IV Moderate Sedation Medication:Versed, Fentanyl 14:08:08 Use device set Femoral Dx 14:08:13 ACIST Syringe (20766) opened to sterile field. 14:08:13 Bag Decanter (2002S) opened to sterile field. 14:08:14 Medline Cath Pack ([id number]) opened to sterile field. 14:08:15 ACIST Hand Control (28944) opened to sterile field. 14:08:16 ACIST Manifold (19170) opened to sterile field. 14:08:16 DIAGNOSTIC Multipack 5Fr catheter set (LS0273) opened to sterile field. 14:08:18 Tegaderm 4 x 4 (1626W) opened to sterile field. 14:08:19 SHEATH 5FR Hemet (UTY235) opened to sterile field. 14:08:20 EMERALD Guide Wire (456-287) opened to sterile field. 14:11:46 0.9% NaCl 100 ml/hr I.V. was administered by Suni Kim RN; used for procedure; Verbal order read back and verified. 14:11:55 Lidocaine 2% 20ml vial added to field was administered by Suni Kim RN; for local anesthetic; Verbal order read back and verified. 14:12:07 Heparin Flush Bag (1000units/500ml NS) 2 bags added to field was administered by Suni Kim RN; used for procedure; Verbal order read back and verified. 14:12:16 Oxygen 2 l/min NC was administered by Suni Kim RN; for low 02 sats; Verbal order read back and verified. 14:18:13 Procedure started. 14:18:13 Full Disclosure recording started 14:19:27 Versed 1 mg I.V. was administered by Suni Kim RN; for sedation; Verbal order read back and verified. 14:19:33 Local anesthetic to right femoral artery with Lidocaine 2% by Luis Mayorga MD.INITIAL ACCESS ONLY 14:19:35 Fentanyl 50 mcg I.V. was administered by Suni Kim RN; for sedation; Verbal order read back and verified. 14:20:11 A 5 Fr sheath was inserted into the Right Femoral artery 14:20:25 A MULTIPACK JL 4.0 5Fr catheter was advanced over the wire and used for Left Coronary Angiography. 14:21:17 LCA angiography performed. 14:21:20 Injector settings: Ml/sec: 3, Volume: 6, 14:22:01 Versed 1 mg I.V. was administered by Suni Kim RN; for sedation; Verbal order read back and verified. 14:22:12 Fentanyl 50 mcg I.V. was administered by Suni Kim RN; for sedation; Verbal order read back and verified. 14:22:56 Catheter removed. 14:23:01 A MULTIPACK 3DRC 5Fr catheter was advanced over the wire and used for Right Coronary Angiography. 14:23:49 RCA angiography performed. 14:24:10 Injector settings: Ml/sec: 3, Volume: 6, 14:24:12 Catheter removed. 14:24:19 A MULTIPACK Pigtail 5 Fr catheter was advanced over the wire and used for LV Angiography. 14:25:08 LV hemodynamics recorded. 14:25:11 LV gram done using ODONNELL 14::13 Injector settings: Ml/sec: 5, Volume: 15, 14:25:21 Versed 0.5 mg I.V. was administered by Suni Julio RN; for sedation; Verbal order read back and verified. 14:25: EF : 50 % 14::44 Catheter removed. 14:25:45 EXOSEAL 5Fr (EX500) opened to sterile field. 14:25:59 Sheath removed intact; hemostasis achieved with Exoseal to the Right Femoral artery. 14:26:02 Procedure ended.(Physican Out) 14:26:09 Fluoroscopy time 01.00 minutes. 14:: Fluoroscopy dose: 875 mGy 14:: Flurop Dose total: 875 14::24 Dose Area Product 52240 mGy/cm. 14:26:31 Contrast amount:Isovue 300 44ml. 14::34 Maximum allowable dose exceeded? No. 14::35 Sharps counted by scrub and verified by R.N. 14:26:35 Insertion/operative site no bleeding no hematoma. 14:26:39 Post-op/insertion site Right Femoral artery dressed using a 4 x 4 and Tegaderm. 14:26:40 Post Procedure Pulses reassessed and unchanged 14::43 Post procedure rhythm: unchanged. 14:26:45 Estimated blood loss: 5 ml 14:26:47 Post procedure instruction explained to patient.Patient verbalizes understanding. 14:26:49 Patient needs reinforcement of post procedure teaching. 14:27:28 Procedure and supply charges have been captured, reviewed, submitted and are correct. 14:27:32 Procedure Complication : No complications 14:27:40 Vital chart was stopped 14:27:43 [facility] Findings: mild to moderate CAD (<70%) 14:27:45 Operative report dictated upon procedure completion. 14:27:46 See physician's report for complete and final results. 14:27:50 Report given to Med II. 14:27:52 Patient transfered to Med II with Stretcher. 14:27:54 Procedure ended. 14:27:54 Full Disclosure recording stopped 14::59 End room use (Document Last) 14:28:31 IV Extension Set opened to sterile field. 14:28:53 MICROPUNCTURE 4FR PerSer Corp ([id number]) opened to sterile field. Device Usage Item Name Manufacture Quantity Catalog Hospital Part Current Minimal Lot# / Number Charge Number Stock Stock Serial# Code ACIST Syringe Acist 1 18190 615810 571448 268784 20 (23031) Medical Systems Inc Bag Decanter Microtek 1 2001S 052630 91817 010346 5 (2001S) Medical Inc. Medline Cath Medline 1 [id number] 792384 44109 490864 5 Pack ([id number]) ACIST Hand Acist 1 12063 943184 401793 109957 5 Control Medical (71132) Systems Inc ACIST Acist 1 21049 146882 686681 354402 5 Manifold Medical (63923) Systems Inc DIAGNOSTIC Cardinal 1 YE9391 567857 29608 013915 30 Multipack 5Fr Health catheter set ([id number]) Tegaderm 4 x 3M 1 1626W 240700 559915 698729 5 4 (1626W) SHEATH 5FR Terumo 1 FRG287 042111 910468 688256 5 Hemet (EFJ144) EMERALD Guide Cardinal 1 502-455 616258 385665 015016 5 Wire Health (502-455) MULTIPACK JL Cardinal 1 251853 5 4.0 5Fr Health catheter MULTIPACK Cardinal 1 420757 5 3DRC 5Fr Health catheter MULTIPACK Cardinal 1 339477 5 Pigtail 5 Fr Health catheter EXOSEAL 5Fr Cardinal 1 EX500 164335 163299 753590 10 (EX500) Health IV Extension Hospira 1 20495-67 368588 91448 600638 5 Set MICROPUNCTURE PerSer Corp [facility] 1 [id number] 297859 778839 986283 5 4FR PerSer Corp (V68928) Signature Audit Jackson Stage Time Signature Unsigned Intra-Procedure 02/18/2020 Rhea Stein 2:28:53 PM RT(R) Intra-Procedure 02/18/2020 Suni 2:29:53 PM Julio RN Intra-Procedure 02/18/2020 Luis Aragon 2:31:49 PM Karthik AVELAR [facility] [address] [place] [address]
[2020-02-17] MEDS ORDERED: PERCOCET 7.5/321 TAB PO (17:51)
[2020-02-17] MEDS ORDERED: FLOMAX0.4 MG (17:52)
[2020-02-17] MEDS ORDERED: KLONOPIN1 MG PO (17:52)
[2020-02-17 18:00] VITALS: BP 115/61
[2020-02-17 19:00] VITALS: BP 119/62
--- NOTE | 2020-02-17 19:10 | NUR ---
REPORT TO FREDDIE LUNA
[2020-02-17 20:02] VITALS: BP 118/64
--- NOTE | 2020-02-17 21:54 | NUR ---
PATIENT ARRIVED TO FLOOR. PATIENT IS ALERT AND ORIENTED RESTING COMFORTABLY IN BED. RESPIRATIONS ARE EVEN AND UNLABORED. NO S/S OF DISTRESS. NO C/O PAIN. CALL LIGHT WITHIN REACH. REVIEWED MED REC WITH PATIENT. NEEDS MET. WILL CPOC.
[2020-02-17 22:47] VITALS: BP 115/53
[2020-02-17 23:00] VITALS: BP 115/61; Ht 180.3 cm; Wt 90.9 kg
[2020-02-18 00:12] LABS: CKMB 1.1 U/L (0.0-3.6); CREATINE KINASE 62 UL (21-232); TROPONIN-I 0.023 ng/mL (0.000-0.060)
[2020-02-18 04:00] VITALS: BP 119/65
[2020-02-18 06:37] LABS: CKMB 1.1 U/L (0.0-3.6); CREATINE KINASE 66 UL (21-232); TROPONIN-I < 0.017 ng/mL (0.000-0.060)
[2020-02-18 09:06] LABS: BASOPHILS 0.2 % (0-2); EOSINOPHILS 1.6 % (0-7); HEMATOCRIT 36.9 % (42.0-54.0); HEMOGLOBIN 11.8 g/dL (13.5-17.5); IMMATURE GRANULOCYTES 0.6 % (0-5); LYMPHOCYTES 19.6 % (15-50); MCH 30.8 pg (26.0-34.0); MCV 96.3 fL (80.0-100.0); MEAN PLATELET VOLUME 9.4 fL (7.4-10.4); MONOCYTES 11.7 % (2-11); NEUTROPHILS 66.3 % (40-80); PLATELET COUNT 287 10x3/uL (130-400); RBC 3.83 10x6/uL (4.20-6.10); RDW 13.5 % (11.5-14.5); WBC 8.9 10x3/uL (4.8-10.8)
[2020-02-18 09:14] LABS: ANION GAP 12.7 mmol/L (8-16); CALCIUM 8.8 mg/dL (8.5-10.1); CARBON DIOXIDE 25.7 mmol/L (21.0-32.0); CHOL - HDL RATIO 3.6 ratio (2.3-4.9); CREATININE - SERUM 1.5 mg/dL (0.6-1.3); LDL-HDL RATIO 2.3 ratio (1.5-3.5); POTASSIUM - SERUM 4.4 mmol/L (3.5-5.1)
[2020-02-18 09:15] VITALS: BP 123/66
--- NOTE | 2020-02-18 09:50 | NUR ---
CONSENTS SIGNED FOR [facility]. WILL CONT. PLAN OF CARE.
--- NOTE | 2020-02-18 10:57 | NUR ---
ECHO COMPLETED AT BS.
[2020-02-18 11:21] LABS: CKMB 1.2 U/L (0.0-3.6); CREATINE KINASE 85 UL (21-232); TROPONIN-I 0.017 ng/mL (0.000-0.060)
[2020-02-18 12:33] VITALS: BP 154/70
--- NOTE | 2020-02-18 13:56 | NUR ---
PRE-OPS GIVEN. TO MECHANICAL TEST TECHNICIAN BY BED.
--- NOTE | 2020-02-18 14:57 | NUR ---
BACK FROM CHEMICAL TECHNICIAN. VS WNL. RIGHT GROIN STABLE WITHOUT BLEEDING OR HEMATOMA NOTED. WILL MONITOR.
--- NOTE | 2020-02-18 16:24 | NUR ---
BED REST UP. GROIN STABLE.
--- NOTE | 2020-02-18 17:28 | NUR ---
IV AND TELEMETRY DCD. DC PLANS GIVEN. UNDERSTANDING VOICED. ESCORTED TO CAR BY W/C.
--- NOTE | 2020-02-19 08:09 | EC ---
PATIENT:KYLE FERGUSON DATE OF SERVICE: 02/17/20 SEX: M MEDICAL RECORD: [id number] DATE OF : 43 LOCATION:D.M2 D.211 AGE OF PATIENT: 75 ADMISSION DATE: 02/17/20 REFERRING PHYSICIAN: INTERPRETING PHYSICIAN: AYAN OLIVEROS MD ECHOCARDIOGRAM REPORT ECHO CHARGES 4 ECHO COMPLETE Date: 02/18/20 CLINICAL DIAGNOSIS: CMP ECHOCARDIOGRAPHIC MEASUREMENTS (adult normal given) AC root (d.<3.7cm) 3.5 cm LV Septum d (<1.2 cm> 1.3 cm Valve Excursion 1.1 cm LV Septum (systole) 1.6 cm Left Atria (s.<4.0cm> 2.8 cm LVPW d(<1.2cm) 1.1 cm RV (d.<2.3cm) 3.4 cm LVPW (sytole) 1.2 cm LV diastole(<5.6CM) 6.1 cm MV E-F(>70mm/sec) cm LV systole 4.9 cm LVOT Diameter 1.7 cm MV exc.(>10mm) cm Est.ejection fraction (50-75%) % DOPPLER: LVIT cm/sec A 92 cm/sec E 57 cm/sec LA cm/sec RVSP 13.9 mmHg LVOT 98 cm/sec AOP1/2T m/s Asc. Ao 140 cm/sec RVOT 62 cm/sec RA cm/sec PA 83 cm/sec AV Gradient Peak 7.8 mmHg AV Mean 4.6 mmHg AV Area 1.6 cm MV Gradient Peak 4.5 mmHg MV Mean 1.7 mmHg MV Area cm COMMENTS: Kitchen Food Server: Francoise COURTNEY Job Setter Honing: 3 Dr. Jensen TAPE# PACS Pericardial Effusion N DATE OF SERVICE: Adequate 2D, color flow imaging, spectral Doppler, and M-mode. LVH is present. LV internal dimensions are dilated at 6.1 cm. LV wall motion appears normal. EF is greater than or equal to 55%. Aortic valve is tricuspid. No evidence of stenosis by Doppler interrogation. Left atrium is normal. Mitral valve shows no prolapse. Trace MR. Right-sided chambers are grossly normal. Trace TR. ECHOCARDIOGRAM REPORT [id number] KYLE FERGUSON NTS:[id number] Voice Confirmation ID: [id number] DOCUMENT ID: [id number] AYAN OLIVEROS MD at 0809 CC: [id number] DICTATION DATE: 02/18/20 161 ASSISTANT WOMEN'S SOCCER COACH: 02/18/20 193 DIS IN 02/18/[address] [facility] [address] [place] [address]
--- NOTE | 2020-02-19 08:09 | OP ---
PATIENT NAME: KYLE FERGUSON MEDICAL RECORD: [id number] :43 LOCATION:D.M2 D.2117 ADMISSION DATE:02/17/20 SURGEON: AYAN OLIVEROS MD DATE OF OPERATION: 02/18/2020 PROCEDURE: Left heart catheterization, selective coronary angiography, right femoral artery approach. CATHETERS: A 5-Czech sheath, 5/4 left and right Davide, 5/4 pig. The procedure was well tolerated. The patient was returned to the donnelly. Sheath removed. ExoSeal device was placed. FINDINGS: Left ventriculography in 30-degree ODONNELL view, normal wall motion, normal systolic function. CORONARY ANATOMY: LEFT MAIN: Left main is free of disease. LAD: Area of previous stent is widely patent without evidence of restenosis. No progression of hopi disease. CIRCUMFLEX: Circumflex free of disease. RIGHT CORONARY ARTERY: Large, dominant right, free of disease. IMPRESSION: Improvement since previous angiography and left ventricular function. No evidence of restenosis. No progression of hopi disease. TRANSINT:[id number] Voice Confirmation ID: [id number] DOCUMENT ID: [id number] AYAN OLIVEROS MD at 0809 CC: [id number] DICTATION DATE: 02/18/20 1431 LADIES LOCKER ROOM ATTENDANT: 02/18/20 1659 DIS IN 02/18/20 [place] [id number] [place] [address]
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
--- NOTE | 2020-02-19 14:49 | MORECARE ---
CASE MANAGEMENT DISCHARGE SUMMARY PATIENT: DEVANG FERGUSON UNIT: [id number] ADM DATE: 02/17/20 AGE: 75 : [birth year] SEX: M ROOM/BED: D.2117 AUTHOR: CARLITO FELIX PHYSICIAN: REFERRING PHYSICIAN: BEBETO ROBLERO DO DATE OF SERVICE: 02/19/20 Discharge Plan Patient Name: DEVANG FERGUSON [facility] [facility] 1945 Planned Disposition: Anticipated Discharge Date: Discharge Date: 02/18/2020 Expected LOS: 0 Initial Reviewer: [email or web address] Initial Review Date: 02/19/2020 Generated: 02/19/20 3:49 pm Coverage Notice Reviewer: [email or web address] Kady Hooper Notice Issued Date-Time: 02/18/2020 8:56 Notice Type: Medicare Outpatient Observation Notice Notice Delivered To: Patient Relationship to Patient: Self Race Starter Name: Devang Ferguson Delivery Method: HAND - Hand Delivered [place] Days: Prior Verbal Notification: Recipient Understood Notice: Yes Recipient Signature: Yes Med Rec Note Co-signed by Attending: Coverage Notice Comment: MOSS signed/given to patient. Original to chart. Patient Name: DEVANG FERGUSON Page [phone] at 1449 All edits/amendments must be made on the electronic document DICTATION DATE: 02/19/20 1449 STRINGED INSTRUMENT REPAIRER: DELILAH 02/19/20 1449 RPT#: [id number] DC DATE:02/18/20 STATUS: DIS IN [facility] [address] [place] [address] END OF REPORT
== END 2020-02-18 17:29 | disposition home or self-care (01) ==
LOC: D.ER 17:31 → D.M2 19:07 → OBSVTIME 19:07 → D.M2 19:07 → D.ER 20:15 → D.M2 02-18 17:29
PROVIDERS: Internal Medicine Interventional Cardiology; ADMIT Family Medicine; ATTEND Family Medicine
DX: I10 Essential (primary) hypertension (principal); E78.5 Hyperlipidemia, unspecified; R07.9 Chest pain, unspecified; I48.91 Unspecified atrial fibrillation; J44.9 Chronic obstructive pulmonary disease, unspecified; K21.9 Gastro-esophageal reflux disease without esophagitis; N40.0 Benign prostatic hyperplasia without lower urinary tract symptoms; M19.90 Unspecified osteoarthritis, unspecified site

== ENCOUNTER 2020-08-22 05:41 | Day surgery (SDC) | payer MEDICARE, BC ==
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
[~2020-08-22] VITALS: Ht 180.3 cm; Wt 90.9 kg
[~2020-08-22 05:41] MED LIST changes: +FLOMAX0.4 MG; +PERCOCET 7.5/321 TAB PO
[2020-08-22 06:29] LABS: ANION GAP 9.1 mmol/L (8-16); CALCIUM 9.1 mg/dL (8.5-10.1); CARBON DIOXIDE 29.9 mmol/L (21.0-32.0); CREATININE - SERUM 1.6 mg/dL (0.6-1.3)
[2020-08-22 06:36] LABS: BASOPHILS 0.1 % (0-2); EOSINOPHILS 2.9 % (0-7); HEMATOCRIT 36.3 % (42.0-54.0); HEMOGLOBIN 11.7 g/dL (13.5-17.5); IMMATURE GRANULOCYTES 0.2 % (0-5); LYMPHOCYTES 22.3 % (15-50); MCH 30.9 pg (26.0-34.0); MCHC 32.2 g/dL (31.0-37.0); MCV 95.8 fL (80.0-100.0); MEAN PLATELET VOLUME 8.8 fL (7.4-10.4); MONOCYTES 8.8 % (2-11); NEUTROPHIL ABS# 5.58 10x3/uL (1.78-5.38); NEUTROPHILS 65.7 % (40-80); RBC 3.79 10x6/uL (4.20-6.10); RDW 13.5 % (11.5-14.5); WBC 8.5 10x3/uL (4.8-10.8)
[2020-08-22 06:40] LABS: PLATELET COUNT 229 10x3/uL (130-400)
[2020-08-22 06:56] VITALS: BP 136/75; Ht 180.3 cm; Wt 90.9 kg
[2020-08-22 07:01] LABS: APTT 24.9 SECONDS (22.8-39.4); INR 1.1 (0.85-1.17); PROTIME 13.1 SECONDS (11.6-15.0)
--- NOTE | 2020-08-22 12:45 | NUR ---
DISCHARGE INSTRUCTIONS REVIEWED WITH PATIENT
--- NOTE | 2020-08-22 13:00 | NUR ---
DISCHARGED HOME VIA WHEELCHAIR TO PRIVATE VEHICLE WITH SPOUSE
--- NOTE | 2020-08-22 13:30 | NUR ---
IV DC'D PRESSURE DRESSING APPLIED
== END 2020-08-22 13:00 | disposition home or self-care (01) ==
LOC: D.SP 05:41 → D.CT 08:00 → D.SP 13:00
PROVIDERS: Radiology Diagnostic Radiology; ATTEND Internal Medicine Medical Oncology
DX: R91.1 Solitary pulmonary nodule (principal); I10 Essential (primary) hypertension; E78.5 Hyperlipidemia, unspecified; J44.9 Chronic obstructive pulmonary disease, unspecified; I25.10 Atherosclerotic heart disease of native coronary artery without angina pectoris

== ENCOUNTER → 2020-09-02 10:24 | Outpatient (CLI) | payer MEDICARE, BC ==
[2020-08-22 06:56] VITALS: BMI 27.9
--- NOTE | 2020-08-23 11:17 | NUR ---
Nicki from assistant front desk manager came at this time to return money clip to patient at this time.
== END | disposition home or self-care (01) ==
LOC: D.RT 10:24
PROVIDERS: ATTEND Internal Medicine Medical Oncology
DX: J44.9 Chronic obstructive pulmonary disease, unspecified (principal)